=== PATIENT | female | born 1960 | race Caucasian/White ===

== ENCOUNTER 2017-04-04 06:31 | Day surgery (SDC) | payer BC, OTHER ==
[~2017-04-04] VITALS: Ht 167.6 cm; Wt 73.5 kg
[2017-04-04] MEDS ORDERED: METOCLOPRAMIDE HCL 10 MG/2 ML VIAL IVP ONE (06:32)
[2017-04-04] MEDS ORDERED: LR 1,000 ML IV.SOLN IV ONE (06:32)
[2017-04-04] MEDS ORDERED: BUPIVACAINE /EPINEPHRINE/PF 0.25% 30 ML VIAL INJ ONE (06:32)
[2017-04-04] MEDS ORDERED: DEXAMETHASONE SOD PHOSPHATE 4 MG/ML VIAL IVP ONE (06:32)
[2017-04-04] MEDS ORDERED: MIDAZOLAM HCL 5 MG/5 ML VIAL IVP ONE (06:32)
[2017-04-04] MEDS ORDERED: PROPOFOL 200MG/ 20ML VIAL (DIPRIVAN) IV ONE (06:32)
[2017-04-04] MEDS ORDERED: ROCURONIUM BROMIDE 10 MG/ML (ZEMURON) IV ONE (06:32)
[2017-04-04] MEDS ORDERED: SEVOFLURANE 15 MIN GAS INH ONE (06:32)
[2017-04-04] MEDS ORDERED: NS IRRIG SOLN 1000 ML IR ONE (06:32)
[2017-04-04] MEDS ORDERED: fentaNYL CITRATE 250 MCG/5 ML AMP IV ONE (06:32)
[2017-04-04] MEDS ORDERED: LR 1,000 ML IV ONE (09:33)
[2017-04-04] MEDS ORDERED: ePHEDrine sulfate 50 MG/ML VIAL IVP PRN (09:45)
[2017-04-04] MEDS ORDERED: fentaNYL CITRATE/PF 100 MCG/2 ML AMP IVP PRN (09:45)
[2017-04-04] MEDS ORDERED: NALBUPHINE HCL 10 MG/ML AMP IVP PRN (09:45)
[2017-04-04] MEDS ORDERED: NALOXONE HCL 0.4 MG/ML AMP (NARCAN) IVP PRN (09:45)
[2017-04-04] MEDS ORDERED: DIPHENHYDRAMINE INJ 50 MG/ML VIAL IVP PRN (09:45)
[2017-04-04] MEDS ORDERED: ONDANSETRON HCL 4 MG/2 ML VIAL IVP PRN ×2 (09:45)
[2017-04-04] MEDS ORDERED: KETOROLAC TROMETHAMINE 30 MG VIAL IM PRN (09:45)
[2017-04-04] MEDS ORDERED: fentaNYL CITRATE/PF 100 MCG/2 ML AMP ONE (11:02)
[2017-04-04] MEDS ORDERED: hydrALAZINE HCL 20 MG/ML VIAL IVP ONE (11:20)
[2017-04-04] MEDS ORDERED: hydrALAZINE HCL 20 MG/ML VIAL ONE (11:27)
[2017-04-04 12:47] VITALS: BP_SYST 134
[2017-04-04] MEDS ORDERED: HYDROcodone/ACETAMIN 5-325 MG TAB (NORCO/ VICODIN) ONE (13:14)
[2017-04-04] MEDS ORDERED: HYDROcodone/ACETAMIN 5-325 MG TAB (NORCO/ VICODIN) PO ONE (13:15)
== END 2017-04-04 16:15 | disposition home or self-care (01) ==
LOC: SDS 06:31 → SMU 06:32 → SDS 16:15
PROVIDERS: ATTEND Otolaryngology
DX: D37.05 Neoplasm of uncertain behavior of pharynx (principal); R22.1 Localized swelling, mass and lump, neck; Z88.8 Allergy status to other drugs, medicaments and biological substances; Z98.890 Other specified postprocedural states; Z79.899 Other long term (current) drug therapy; E78.5 Hyperlipidemia, unspecified; I10 Essential (primary) hypertension; I25.10 Atherosclerotic heart disease of native coronary artery without angina pectoris; I34.1 Nonrheumatic mitral (valve) prolapse
CPT/HCPCS: 11424; 12042; 88305; J0360; J1100; J2250; J2704; J2765; J3010 ×2; J3490; J7120; 88307